=== PATIENT | male | born 1980 | race African-American/Black ===

== ENCOUNTER → 2016-07-16 20:30 | Emergency (ER) | payer MEDICAID ==
[~2016-07-16 20:30] MED LIST: AMOXICILLIN500 M1 PO; FLEXERIL PO; KETOPROFEN PO; NO MEDICATIONS; NORCO 5/325 TAB1 TAB PO; PEN-VEE K PO; PRILOSEC; ULTRAM PO; VOLTAREN50 MG PO
== END | disposition left against medical advice (07) ==
LOC: CED 20:30
DX: Z53.21 Procedure and treatment not carried out due to patient leaving prior to being seen by health care provider (principal)

== ENCOUNTER 2016-09-07 06:02 | Emergency (ER) | payer OTHER ==
[2016-09-07] MEDS ORDERED: NO MEDICATIONS (06:09)
== END 2016-09-07 06:38 | disposition home or self-care (01) ==
LOC: SED 06:02
DX: K64.4 Residual hemorrhoidal skin tags (principal); F17.200 Nicotine dependence, unspecified, uncomplicated
CPT/HCPCS: 99282; 99283